=== PATIENT | male | born 1945 | race Caucasian/White ===

== ENCOUNTER → 2017-02-08 | Outpatient (CLI) | payer MEDICARE, OTHER ==
[~2017-02-08] MED LIST: IV NORMAL SALINE 250ML 250 ML ONE
[2017-02-08 08:26] LABS: HEMATOCRIT 23.9 % (39.0-53.0); HEMOGLOBIN 7.4 g/dL (13.0-17.5)
[2017-02-08 15:29] VITALS: BP 115/55
--- NOTE | 2017-02-08 15:54 | NUR ---
Blood was delayed due to pt having antibodies. Pt left and came back to receive blood. PT unhappy with delay. Norberto STEWARD
[2017-02-08 15:59] VITALS: BP 109/84
--- NOTE | 2017-02-08 16:01 | NUR ---
Blood transfusions started at 1546. Tubing primed with normal saline, than primed with blood. Transfusions started at 60ml/hour pt monitored closely for 15 min. No reaction noted and transfusion increased to 110. Norberto STEWARD
[2017-02-08 17:00] VITALS: BP 97/55
[2017-02-08 18:00] VITALS: BP 128/77
[2017-02-08 18:30] VITALS: BP 128/77
--- NOTE | 2017-02-08 18:45 | NUR ---
blood infused, vital signs assessed, iv removed, tip intact. pt to return in 1 hour for lab
[2017-02-08 19:36] VITALS: BP 125/57
--- NOTE | 2017-02-08 19:36 | NUR ---
Pt returned for labs and vitals, VSS. Labs drawn. Pt ambulated off unit.
[2017-02-08 19:37] LABS: HEMATOCRIT 27.1 % (39.0-53.0); HEMOGLOBIN 8.6 g/dL (13.0-17.5)
== END | disposition home or self-care (01) ==
LOC: OPS 07:54
PROVIDERS: ATTEND Nurse Practitioner
DX: D64.9 Anemia, unspecified (principal)
CPT/HCPCS: 36415; 36430; 36591; 85014; 85018; 86850; 86870; 86900; 86901; 86902; 86922; J7050; P9016

== ENCOUNTER → 2017-02-13 | Outpatient (CLI) | payer MEDICARE, OTHER ==
[2017-02-08 19:36] VITALS: BP 125/57
[2017-02-13 13:18] LABS: BASO % 1 % (0-3); EOS # 0.2 x10^3/uL (0.0-0.7); EOS % 3 % (0-3); HEMATOCRIT 27.4 % (39.0-53.0); HEMOGLOBIN 8.6 g/dL (13.0-17.5); LYMPH # 1.3 x10^3/uL (1.0-4.8); LYMPH % 21 % (24-48); MEAN CORPUSCULAR HEMOGLOBIN 27 pg (25-35); MEAN CORPUSCULAR HGB CONC 31 g/dL (31-37); MEAN CORPUSCULAR VOLUME 87 fL (79-100); MONO # 0.7 x10^3/uL (0.0-1.1); MONO % 11 % (0-9); NEUT # 3.9 x10^3uL (1.8-7.7); NEUT % 64 % (31-73); PLATELET COUNT 210 x10^3/uL (140-400); RED BLOOD COUNT 3.15 x10^6/uL (4.30-5.70); RED CELL DISTRIBUTION WIDTH 18.9 % (11.5-14.5); WHITE BLOOD COUNT 6.1 x10^3/uL (4.0-11.0)
== END | disposition home or self-care (01) ==
LOC: LAB 13:03
PROVIDERS: ATTEND Nurse Practitioner
DX: D64.9 Anemia, unspecified (principal)
CPT/HCPCS: 36415; 85027

== ENCOUNTER → 2017-02-15 | Outpatient (CLI) | payer MEDICARE, OTHER ==
[2017-02-08 19:36] VITALS: BP 125/57
[2017-02-15 16:13] LABS: BASO # 0.1 x10^3/uL (0.0-0.2); BASO % 1 % (0-3); EOS # 0.1 x10^3/uL (0.0-0.7); EOS % 3 % (0-3); HEMATOCRIT 27.5 % (39.0-53.0); HEMOGLOBIN 8.6 g/dL (13.0-17.5); LYMPH # 1.3 x10^3/uL (1.0-4.8); LYMPH % 23 % (24-48); MEAN CORPUSCULAR HEMOGLOBIN 27 pg (25-35); MEAN CORPUSCULAR HGB CONC 31 g/dL (31-37); MEAN CORPUSCULAR VOLUME 87 fL (79-100); MONO # 0.7 x10^3/uL (0.0-1.1); MONO % 13 % (0-9); NEUT # 3.3 x10^3uL (1.8-7.7); NEUT % 60 % (31-73); PLATELET COUNT 205 x10^3/uL (140-400); RED BLOOD COUNT 3.18 x10^6/uL (4.30-5.70); RED CELL DISTRIBUTION WIDTH 19.3 % (11.5-14.5); WHITE BLOOD COUNT 5.5 x10^3/uL (4.0-11.0)
[2017-02-15 16:18] LABS: CALCIUM 9.3 mg/dL (8.5-10.1); CREATININE 1.2 mg/dL (0.7-1.3); GFR 59.5; POTASSIUM 4.5 mmol/L (3.5-5.1)
== END | disposition home or self-care (01) ==
LOC: LAB 15:14
PROVIDERS: ATTEND Internal Medicine Cardiovascular Disease
DX: I25.10 Atherosclerotic heart disease of native coronary artery without angina pectoris (principal)
CPT/HCPCS: 36415; 80048; 85027; 85610

== ENCOUNTER → 2017-10-24 | Outpatient (CLI) | payer MEDICARE, OTHER ==
[2017-02-08 19:36] VITALS: BP 125/57
[2017-10-24 09:11] LABS: BASO # 0.1 x10^3/uL (0.0-0.2); BASO % 1 % (0-3); EOS # 0.2 x10^3/uL (0.0-0.7); EOS % 3 % (0-3); HEMATOCRIT 28.4 % (39.0-53.0); HEMOGLOBIN 8.6 g/dL (13.0-17.5); LYMPH # 1.1 x10^3/uL (1.0-4.8); LYMPH % 18 % (24-48); MEAN CORPUSCULAR HEMOGLOBIN 25 pg (25-35); MEAN CORPUSCULAR HGB CONC 30 g/dL (31-37); MEAN CORPUSCULAR VOLUME 83 fL (79-100); MONO # 0.8 x10^3/uL (0.0-1.1); MONO % 14 % (0-9); NEUT # 3.7 x10^3uL (1.8-7.7); NEUT % 64 % (31-73); PLATELET COUNT 187 x10^3/uL (140-400); RED BLOOD COUNT 3.43 x10^6/uL (4.30-5.70); RED CELL DISTRIBUTION WIDTH 21.5 % (11.5-14.5); WHITE BLOOD COUNT 5.8 x10^3/uL (4.0-11.0)
[2017-10-24 09:18] LABS: ALBUMIN 3.2 g/dL (3.4-5.0); ALBUMIN/GLOBULIN RATIO 0.8 (1.0-1.7); CALCIUM 9.3 mg/dL (8.5-10.1); CREATININE 1.3 mg/dL (0.7-1.3); GFR 54.1; POTASSIUM 4.8 mmol/L (3.5-5.1); TOTAL BILIRUBIN 0.4 mg/dL (0.2-1.0); TOTAL PROTEIN 7.1 g/dL (6.4-8.2)
[2017-10-24 09:34] LABS: ANISOCYTOSIS MOD; HYPOCHROMIA MOD; MICROCYTOSIS SLIGHT; OVALOCYTES OCC; PLT ESTIMATE ADEQUATE (ADEQUATE); POLYCHROMASIA SLIGHT; STOMATOCYTES FEW
== END | disposition home or self-care (01) ==
LOC: LAB 08:38
PROVIDERS: ATTEND Nurse Practitioner
DX: I10 Essential (primary) hypertension (principal)
CPT/HCPCS: 36415; 80053; 80061; 85025

== ENCOUNTER → 2017-11-24 | Outpatient (CLI) | payer MEDICARE, OTHER ==
[2017-02-08 19:36] VITALS: BP 125/57
--- NOTE | 2017-11-24 09:52 | RAD ---
DOPPLER CAROTID BILAT Clinical Indication: Right endarterectomy.. Left carotid artery stenosis. Procedure: Pulsed wave and color-flow duplex imaging was utilized to evaluate the extracranial carotid arteries. Comparison: Previous Doppler from 07/02/2012. Findings: Left SIDE: Moderate atherosclerotic plaque on cline-scale images in the carotid bulb and proximal ICA. Distal CCA peak systolic velocity 66 cm/sec. ICA peak systolic velocity 115 cm/sec. The left ICA/CCA ratio is 1.7.. Flow within the left vertebral artery and left ECA is directed antegrade. Right SIDE: Mild atherosclerotic plaque on cline-scale images. Distal CCA peak systolic velocity 64 cm/sec. ICA peak systolic velocity 72 cm/sec. The right ICA/CCA ratio is 1.1. Flow within the right vertebral artery and right ECA is directed antegrade. Carotid legend: CCA = common carotid artery ICA = internal carotid artery ECA = external carotid artery IMPRESSION: 1. Moderate left and mild right atherosclerotic disease of the carotid systems. 2. Stable 50-69 % stenosis in the left ICA and less than 50% stenosis in the right ICA.
== END | disposition home or self-care (01) ==
LOC: US 08:19
PROVIDERS: ATTEND Nurse Practitioner
DX: I65.23 Occlusion and stenosis of bilateral carotid arteries (principal); I73.9 Peripheral vascular disease, unspecified
CPT/HCPCS: 93880

== ENCOUNTER → 2017-12-22 | Outpatient (CLI) | payer MEDICARE, OTHER ==
[2017-02-08 19:36] VITALS: BP 125/57
[2017-12-22 13:10] LABS: BASO % 1 % (0-3); EOS # 0.2 x10^3/uL (0.0-0.7); EOS % 5 % (0-3); HEMATOCRIT 28.8 % (39.0-53.0); HEMOGLOBIN 9.1 g/dL (13.0-17.5); LYMPH # 1.2 x10^3/uL (1.0-4.8); LYMPH % 22 % (24-48); MEAN CORPUSCULAR HEMOGLOBIN 30 pg (25-35); MEAN CORPUSCULAR HGB CONC 32 g/dL (31-37); MEAN CORPUSCULAR VOLUME 93 fL (79-100); MONO # 0.5 x10^3/uL (0.0-1.1); MONO % 9 % (0-9); NEUT # 3.3 x10^3uL (1.8-7.7); NEUT % 64 % (31-73); PLATELET COUNT 171 x10^3/uL (140-400); RED BLOOD COUNT 3.08 x10^6/uL (4.30-5.70); RED CELL DISTRIBUTION WIDTH 23.6 % (11.5-14.5); WHITE BLOOD COUNT 5.2 x10^3/uL (4.0-11.0)
== END | disposition home or self-care (01) ==
LOC: LAB 12:47
PROVIDERS: ATTEND Nurse Practitioner
DX: I48.0 Paroxysmal atrial fibrillation (principal)
CPT/HCPCS: 36415; 85025

== ENCOUNTER → 2018-01-04 | Outpatient (CLI) | payer MEDICARE, OTHER ==
[2017-02-08 19:36] VITALS: BP 125/57
[2018-01-04 09:15] LABS: BASO % 1 % (0-3); EOS # 0.2 x10^3/uL (0.0-0.7); EOS % 5 % (0-3); HEMOGLOBIN 9.4 g/dL (13.0-17.5); LYMPH # 1.1 x10^3/uL (1.0-4.8); LYMPH % 23 % (24-48); MEAN CORPUSCULAR HEMOGLOBIN 30 pg (25-35); MEAN CORPUSCULAR HGB CONC 33 g/dL (31-37); MEAN CORPUSCULAR VOLUME 92 fL (79-100); MONO # 0.5 x10^3/uL (0.0-1.1); MONO % 9 % (0-9); NEUT # 3.1 x10^3uL (1.8-7.7); NEUT % 63 % (31-73); PLATELET COUNT 185 x10^3/uL (140-400); RED BLOOD COUNT 3.15 x10^6/uL (4.30-5.70); RED CELL DISTRIBUTION WIDTH 20.7 % (11.5-14.5); WHITE BLOOD COUNT 4.9 x10^3/uL (4.0-11.0)
[2018-01-04 10:07] LABS: ANISOCYTOSIS MOD; PLT ESTIMATE ADEQUATE (ADEQUATE); POLYCHROMASIA SLIGHT
[2018-01-04 10:08] LABS: HYPOCHROMIA SLIGHT
[2018-01-04 10:09] LABS: OVALOCYTES FEW
[2018-01-04 10:10] LABS: TEAR DROP CELLS OCC
[2018-01-04 10:11] LABS: MICROCYTOSIS SLIGHT
== END | disposition home or self-care (01) ==
LOC: LAB 08:48
PROVIDERS: ATTEND Nurse Practitioner
DX: D64.9 Anemia, unspecified (principal); I10 Essential (primary) hypertension; E78.5 Hyperlipidemia, unspecified
CPT/HCPCS: 36415; 85025

== ENCOUNTER → 2018-04-24 | Outpatient (CLI) | payer MEDICARE, OTHER ==
[2017-02-08 19:36] VITALS: BP 125/57
[2018-04-24 10:11] LABS: ALBUMIN 3.6 g/dL (3.4-5.0); CALCIUM 10.1 mg/dL (8.5-10.1); CREATININE 1.6 mg/dL (0.7-1.3); GFR 42.5; POTASSIUM 5.3 mmol/L (3.5-5.1); TOTAL BILIRUBIN 0.5 mg/dL (0.2-1.0); TOTAL PROTEIN 7.3 g/dL (6.4-8.2)
== END | disposition home or self-care (01) ==
LOC: LAB 09:40
PROVIDERS: ATTEND Nurse Practitioner
DX: E78.5 Hyperlipidemia, unspecified (principal); E11.9 Type 2 diabetes mellitus without complications; I10 Essential (primary) hypertension; I25.10 Atherosclerotic heart disease of native coronary artery without angina pectoris; I48.0 Paroxysmal atrial fibrillation; Z86.2 Personal history of diseases of the blood and blood-forming organs and certain disorders involving the immune mechanism
CPT/HCPCS: 36415; 80053; 80061

== ENCOUNTER → 2018-06-26 | Outpatient (CLI) | payer MEDICARE, OTHER ==
[2017-02-08 19:36] VITALS: BP 125/57
[2018-06-26 11:42] LABS: BASO % 1 % (0-3); EOS # 0.1 x10^3/uL (0.0-0.7); EOS % 4 % (0-3); HEMOGLOBIN 8.5 g/dL (13.0-17.5); LYMPH # 1.1 x10^3/uL (1.0-4.8); LYMPH % 26 % (24-48); MEAN CORPUSCULAR HEMOGLOBIN 31 pg (25-35); MEAN CORPUSCULAR HGB CONC 31 g/dL (31-37); MEAN CORPUSCULAR VOLUME 98 fL (79-100); MONO # 0.5 x10^3/uL (0.0-1.1); MONO % 12 % (0-9); NEUT # 2.4 x10^3uL (1.8-7.7); NEUT % 58 % (31-73); PLATELET COUNT 160 x10^3/uL (140-400); RED BLOOD COUNT 2.77 x10^6/uL (4.30-5.70); RED CELL DISTRIBUTION WIDTH 20.7 % (11.5-14.5); WHITE BLOOD COUNT 4.1 x10^3/uL (4.0-11.0)
[2018-06-26 11:56] LABS: CALCIUM 9.5 mg/dL (8.5-10.1); CREATININE 1.5 mg/dL (0.7-1.3); GFR 45.7; POTASSIUM 5.1 mmol/L (3.5-5.1)
[2018-06-26 12:06] LABS: PLT ESTIMATE ADEQUATE (ADEQUATE)
[2018-06-26 12:07] LABS: ANISOCYTOSIS SLIGHT; OVALOCYTES OCC; TARGET CELLS OCC
== END | disposition home or self-care (01) ==
LOC: LAB 11:25
PROVIDERS: ATTEND Nurse Practitioner
DX: I10 Essential (primary) hypertension (principal)
CPT/HCPCS: 36415; 80048; 85025

== ENCOUNTER → 2018-12-14 | Outpatient (CLI) | payer MEDICARE, OTHER ==
[2017-02-08 19:36] VITALS: BP 125/57
[2018-12-14 08:04] LABS: ALBUMIN 3.7 g/dL (3.4-5.0); ALBUMIN/GLOBULIN RATIO 0.9 (1.0-1.7); CALCIUM 10.2 mg/dL (8.5-10.1); CREATININE 1.7 mg/dL (0.7-1.3); GFR 39.6; POTASSIUM 5.7 mmol/L (3.5-5.1); TOTAL BILIRUBIN 0.4 mg/dL (0.2-1.0); TOTAL PROTEIN 7.8 g/dL (6.4-8.2)
== END | disposition home or self-care (01) ==
LOC: LAB 07:29
PROVIDERS: ATTEND Nurse Practitioner
DX: E78.5 Hyperlipidemia, unspecified (principal)
CPT/HCPCS: 36415; 80053; 80061

== ENCOUNTER 2021-05-04 19:13 | Emergency (ER) | payer MEDICARE, OTHER ==
[2017-02-08 19:36] VITALS: BP 125/57
[2021-05-04] MEDS ORDERED: AMIODARONE 150 MG/3 ML VIAL IVP ONE (19:30)
[2021-05-04] MEDS ORDERED: SODIUM BICARB ADULT 8.4% 50 MEQ/50 ML DISP.SYRIN. ONE (19:30)
[2021-05-04] MEDS ORDERED: DEXTROSE 50% 25 GM / 50ML DISP.SYRIN. IV ONE (19:30)
[2021-05-04] MEDS ORDERED: EPINEPHrine SYRINGE 1 MG/10 ML SYRINGE ONE (19:30)
[2021-05-04] MEDS ORDERED: IV NORMAL SALINE 250 ML BAG ONE (19:30)
[2021-05-04] MEDS ORDERED: ATROPINE 1 MG/10 ML DISP.SYRINGE. ONE (19:30)
[2021-05-04] MEDS ORDERED: CALCIUM CHLORIDE 1,000 MG/10 ML VIAL IV ONE (19:30)
[2021-05-04 19:58] LABS: BASO % 0 % (0-3); EOS % 0 % (0-3); HEMATOCRIT 34.1 % (39.0-53.0); HEMOGLOBIN 10.2 g/dL (13.0-17.5); LYMPH # 2.5 x10^3/uL (1.0-4.8); LYMPH % 34 % (24-48); MEAN CORPUSCULAR HEMOGLOBIN 34 pg (25-35); MEAN CORPUSCULAR HGB CONC 30 g/dL (31-37); MEAN CORPUSCULAR VOLUME 114 fL (79-100); MONO # 0.4 x10^3/uL (0.0-1.1); MONO % 6 % (0-9); NEUT # 4.2 x10^3uL (1.8-7.7); NEUT % 59 % (31-73); PLATELET COUNT 144 x10^3/uL (140-400); RED CELL DISTRIBUTION WIDTH 20.4 % (11.5-14.5); WHITE BLOOD COUNT 7.2 x10^3/uL (4.0-11.0)
[2021-05-04 20:21] LABS: ALBUMIN 2.7 g/dL (3.4-5.0); ALBUMIN/GLOBULIN RATIO 0.8 (1.0-1.7); CREATININE 13.1 mg/dL (0.7-1.3); GFR 3.7; TOTAL BILIRUBIN 0.4 mg/dL (0.2-1.0)
[2021-05-04 20:23] LABS: POTASSIUM 7.5 mmol/L (3.5-5.1)
--- NOTE | 2021-05-04 20:26 | RAD ---
Exam: Chest one view INDICATION: Unresponsive, check tube placement TECHNIQUE: Frontal view of the chest Comparisons: None FINDINGS: Endotracheal tube with tip approximately 4 cm above the garrison. Enteric tube traverses below the diap hragm distal extent not visualized. Heart is mildly enlarged. Pulmonary vessels are obscured. Patchy bilateral airspace disease in lungs bilaterally. No pleural effusion. IMPRESSION: 1. Lines and tubes described above. 2. Extensive bilateral airspace disease. Electronically signed by: Puneet Phelan MD (05/04/2021 8:24 PM) [facility]
[2021-05-04 20:59] LABS: % BANDS 4 % (0-9); % LYMPHS 39 % (24-48); % METAS 1 % (0-0); % MONOS 7 % (0-10); % SEGS 49 % (35-66); NUCLEATED RBC 1
--- NOTE | 2021-05-04 20:59 | PHYS DOC ---
General Adult EDM: Chief Complaint: CPR/FULL ARREST HPI: HPI: Arrives in Cardio/pulmonary arrest with compressions by mechanical with Bag Tube Ventilations. Patient is a 76 year old male who presents with hx of increase fatigue today. Pt. went to check mail and on return pt. was non-responsive. Pt. had no CPR until arrival supervisor orchard. CPR, Intubation and 7 epi prior to arrival. Pt. had intermittent return of spontaneous agonal respirations and pulses with blood pressure. Series of cardiopulmonary arrest requiring CPR. Patient received fluid boluses, epinephrine drip and treatment of hyperkalemia. See code sheet. After some discussions with , [id number], and niece it was elected that comfort measures will be started and avoid aggressive support. Code called at 2055. At request of family NG and ET removed so they can see his face. They are at his bedside currently. Patient has past history of diabetes, hypertension, coronary artery disease, A. fib, tobacco use, chronic renal disease, hematuria, hyperlipidemia, pulmonary lung nodule, anemia, bilateral carotid stenosis, peripheral rash disease, chronic diastolic heart failure, right bundle branch block, mild blastic myeloproliferative disease, pneumonia, sepsis, polyneuropathy, gait disorder, obesity, chronic bronchitis, hyperkalemia, and on hemodialysis. Review of Systems: Review of Systems: Review of systems per -increased fatigue today. Family History: Family History: Noncontributory presentation Current Medications: Current Meds: See nursing for home meds Allergies: Allergies: Allergies Coded Allergies Type Severity Reaction Last Updated Verified No Known Drug Allergies 06/30/14 No Physical Exam: PE: Constitutional: Morbid in appearance HENT: Normocephalic, atraumatic, bilateral external ears normal, ET in place oral Eyes: Fixed and dilated, conjunctiva pale, no discharge. [] Neck: Trachea midline. Cardiovascular: Pulseless, pulse only with compressions. Lungs & Thorax: Bilateral breath sounds equal apex with scattered wheezes, rhonchi rales. Midline scar Abdomen: Abdomen distended and tympanic, scars. Skin: Cyanotic and cold Back: No obvious lesions Extremities: Arthritic changes. Scar Neurologic: Nonresponsive Current Patient Data: Labs: Laboratory Tests Test 05/04/21 19:25 White Blood Count 7.2 x10^3/uL (4.0-11.0) Red Blood Count 3.00 x10^6/uL (4.30-5.70) L Hemoglobin 10.2 g/dL (13.0-17.5) L Hematocrit 34.1 % (39.0-53.0) L Mean Corpuscular Volume 114 fL (79-100) H Mean Corpuscular Hemoglobin 34 pg (25-35) Mean Corpuscular Hemoglobin Concent 30 g/dL (31-37) L Red Cell Distribution Width 20.4 % (11.5-14.5) H Platelet Count 144 x10^3/uL (140-400) Neutrophils (%) (Auto) 59 % (31-73) Lymphocytes (%) (Auto) 34 % (24-48) Monocytes (%) (Auto) 6 % (0-9) Eosinophils (%) (Auto) 0 % (0-3) Basophils (%) (Auto) 0 % (0-3) Neutrophils # (Auto) 4.2 x10^3uL (1.8-7.7) Lymphocytes # (Auto) 2.5 x10^3/uL (1.0-4.8) Monocytes # (Auto) 0.4 x10^3/uL (0.0-1.1) Eosinophils # (Auto) 0.0 x10^3/uL (0.0-0.7) Basophils # (Auto) 0.0 x10^3/uL (0.0-0.2) Platelet Estimate Pending Activated Partial Thromboplast Time 34 SEC (23-33) H D-Dimer (Vane) 15.37 mg/L (0.00-0.50) H Sodium Level 134 mmol/L (136-145) L Potassium Level 7.5 mmol/L (3.5-5.1) *H Chloride Level 95 mmol/L (98-107) L Carbon Dioxide Level 18 mmol/L (21-32) L Anion Gap 21 (6-14) H Blood Urea Nitrogen 113 mg/dL (8-26) H Creatinine 13.1 mg/dL (0.7-1.3) H Estimated GFR (Cockcroft-Gault) 3.7 BUN/Creatinine Ratio 9 (6-20) Glucose Level 233 mg/dL (70-99) H Calcium Level 9.0 mg/dL (8.5-10.1) Total Bilirubin 0.4 mg/dL (0.2-1.0) Aspartate Amino Transferase (AST) 24 U/L (15-37) Alanine Aminotransferase (ALT) 19 U/L (16-63) Alkaline Phosphatase 80 U/L (46-116) Troponin I Quantitative 0.037 ng/mL (0-0.055) Total Protein 6.0 g/dL (6.4-8.2) L Albumin 2.7 g/dL (3.4-5.0) L Albumin/Globulin Ratio 0.8 (1.0-1.7) L EKG: EKG: EKG ventricular rate 101. Interval of tractor block, PACs, PVCs, prolonged TN interval, right axis, Radiology/Procedures: Radiology/Procedures: [][place] [address] IMAGING REPORT Signed PATIENT: KARINA CAMARGO ACCOUNT: [id number] : 1945 LOCATION: ER AGE: 76 SEX: M EXAM STATUS: PRE ER ORD. PHYSICIAN: LIANE SILVERIO MD REASON: Code Blue, unresponsive, check tube placement PROCEDURE: PORTABLE CHEST 1V Exam: Chest one view INDICATION: Unresponsive, check tube placement TECHNIQUE: Frontal view of the chest Comparisons: None FINDINGS: Endotracheal tube with tip approximately 4 cm above the garrison. Enteric tube traverses below the diaphragm distal extent not visualized. Heart is mildly enlarged. Pulmonary vessels are obscured. Patchy bilateral airspace disease in lungs bilaterally. No pleural effusion. IMPRESSION: 1. Lines and tubes described above. 2. Extensive bilateral airspace disease. Electronically signed by: Puneet Cullen MD (05/04/2021 8:24 PM) [facility] DICTATED AND SIGNED BY: UPNEET CULLEN MD DATE: 05/04/212022 CC: JUDY KEVIN APRN; LIANE SILVERIO MD ~MTH0 0 Heart Score: C/O Chest Pain: Yes HEART Score for Chest Pain: HEART Score for Chest Pain Response (Comments) Value History Highly Suspicious [address] Depression 2 Age > 65 2 Risk Factors >3 Risk Factors or Hx CAD 2 Troponin >1-<3x Normal Limit 1 Total 9 Risk Factors: Risk Factors: DM, Current or recent (<one month) smoker, HTN, HLP, family history of CAD, obesity. Risk Scores: Score 0 - 3: 2.5% MACE over next 6 weeks - Discharge Home Score 4 - 6: 20.3% MACE over next 6 weeks - Admit for Clinical Observation Score 7 - 10: 72.7% MACE over next 6 weeks - Early Invasive Strategies Course & Med Decision Making: Course & Med Decision Making Pertinent Labs and Imaging studies reviewed. (See chart for details) @2057 patient appeared to be without any respirations. Occasional electrical complex with no pulse. Family have elected to stop aggressive resuscitation. Focus only on comfort care attempts will be to find a primary to notify him. Family is at bedside. See code sheet for details. Procedure Note: Rt. Femoral Central Line- Rt. Groin preped with kit. Sterile technique-hat, gown, mass , globes and draped. Triple-lumen placed by Seldinger technique. Return blood all [address] with Biopatch. Critical Care: 90 min Impression: 1. Cardiopulmonary Arrest 2. Chronic Renal Failure 3. Hyperkalemia 7.5 4. Anemia 10.2 5. Malnutrition Alb. 2.7 6. Elev. D-diner 15.37 7. at 2055 hrs. [] Lola Disclaimer: Lola Disclaimer: This electronic medical record was generated, in whole or in part, using a voice recognition dictation system. Departure Departure: Referrals: JUDY KEVIN APRN (PCP) Lola Disclaimer This chart was dictated in whole or in part using Voice Recognition software in a busy, high-work load, and often noisy Emergency Department environment. It may contain unintended and wholly unrecognized errors or omissions. LIANE SILVERIO MD May 04, 2021 20:59
[2021-05-04 21:00] LABS: ANISOCYTOSIS MOD; PLT ESTIMATE ADEQUATE (ADEQUATE)
--- NOTE | 2021-05-04 23:34 | EKG ---
[address] [address] Test Date: 2021-05-04 Test Time: 20:11:53 Pat Name: KARINA CAMARGO Department: Room: Gender: M Fiberglass Laminator: LEWIS : 1945 Requested By: LIANE SILVERIO Order Number: [id number] Reading MD: Jaylen Lozada MD Measurements Intervals [place] Rate: 101 P: 0 [place]: 214 QRS: 171 QRSD: 158 T: -48 QT: 374 QTc: 486 Interpretive Statements PROBABLE ATRIAL FIBRILLATION CONSIDER INFERIOR CA RBBB CONSIDER ELECTROLYTE ABNORMALITIES Electronically Signed On 05-06-2021 9:09:35 CDT by Jaylen Lozada MD
--- NOTE | 2021-05-07 18:13 | PDOC ---
Current Medications Current Medications Amiodarone HCl (Cordarone) 450 mg STK-MED ONCE IVP ; Start 05/04/21 at 19:30; Stop 05/04/21 at 23:18; Status DC Atropine Sulfate (ATROPINE 1mg SYRINGE) 1 mg STK-MED ONCE .ROUTE ; Start 05/04/21 at 19:30; Stop 05/04/21 at 23:18; Status DC Calcium Chloride (Calcium Chloride) 1,000 mg STK-MED ONCE IV ; Start 05/04/21 at 19:30; Stop 05/04/21 at 23:18; Status DC Dextrose (Dextrose 50%-Water Syringe) 25 gm STK-MED ONCE IV ; Start 05/04/21 at 19:30; Stop 05/04/21 at 23:18; Status DC Epinephrine HCl (EPINEPHrine SYRINGE) 8 mg STK-MED ONCE .ROUTE ; Start 05/04/21 a t 19:30; Stop 05/04/21 at 23:18; Status DC Sodium Bicarbonate (Sodium Bicarb Adult 8.4% Syr) 100 meq STK-MED ONCE .ROUTE ; Start 05/04/21 at 19:30; Stop 05/04/21 at 23:18; Status DC Epinephrine HCl (EPINEPHrine AMPULE) 5 mg STK-MED ONCE .ROUTE ; Start 05/04/21 at 19:30; Stop 05/04/21 at 23:18; Status DC Sodium Chloride (Iv Sodium Chloride 0.9% 250ml) 250 ml STK-MED ONCE .ROUTE ; Start 05/04/21 at 19:30; Stop 05/04/21 at 23:18; Status DC Active Scripts Active Reported No Known Medications Prior To Admisstion (Info) Each 1 Each LIANE SILVERIO MD May 07, 2021 18:13
== END 2021-05-05 01:00 ==
LOC: ER 19:13
DX: I46.9 Cardiac arrest, cause unspecified (principal); I12.9 Hypertensive chronic kidney disease with stage 1 through stage 4 chronic kidney disease, or unspecified chronic kidney disease; E11.22 Type 2 diabetes mellitus with diabetic chronic kidney disease; N18.9 Chronic kidney disease, unspecified; E87.5 Hyperkalemia; D64.9 Anemia, unspecified; E46 Unspecified protein-calorie malnutrition; R79.1 Abnormal coagulation profile; I48.91 Unspecified atrial fibrillation; E78.5 Hyperlipidemia, unspecified; Z72.0 Tobacco use; Z20.822 Contact with and (suspected) exposure to COVID-19; Z99.2 Dependence on renal dialysis
CPT/HCPCS: 36415; 36556; 71045; 80053; 82947; 84484; 85007; 85025; 85379; 85730; 87040; 87426; 92950; 93005; 99291; 99292; C9803; J0171; J0282; J0461; J7050; U0003